=== PATIENT | male | born 1935 | race Caucasian/White ===

== ENCOUNTER 2017-01-12 14:36 | Inpatient (IN) | payer OTHER ==
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
[2017-01-12] MEDS ORDERED: NS 1000 ML 1,000 ML IV SCH (16:00)
[2017-01-12 16:03] LABS: BASOPHILS # (AUTO) 0.1 X10^3/uL (0.0-0.1); BASOPHILS % (AUTO) 0.4 % (0.2-1.0); EOSINOPHILS # (AUTO) 0.1 x10^3/uL (0.0-0.2); EOSINOPHILS % (AUTO) 0.4 % (0.9-2.9); HEMATOCRIT 35.9 % (42.0-54.0); HEMOGLOBIN 11.8 g/dL (13.5-18.0); LYMPHOCYTES # (AUTO) 1.7 X10^3/uL (1.3-2.9); LYMPHOCYTES % (AUTO) 7.1 % (21.0-51.0); MEAN CORPUSCULAR HGB CONC 32.9 g/dL (33.0-35.0); MEAN CORPUSCULAR VOLUME 85.2 fL (80.0-100.0); MEAN PLATELET VOLUME 9.5 fL (7.4-11.0); MONOCYTES # (AUTO) 2.3 x10^3/uL (0.3-0.8); MONOCYTES % (AUTO) 10.1 % (0.0-13.0); NEUTROPHILS # (AUTO) 19.1 x10^3/uL (2.2-4.8); PLATELET COUNT 247 X10^3/uL (150.0-450.0); RED BLOOD COUNT 4.21 X10^6/uL (4.7-6.0)
[2017-01-12 16:06] LABS: WHITE BLOOD COUNT 23.2 X10^3/uL (3.6-10.0)
[2017-01-12] MEDS ORDERED: NS 1000 ML 1,000 ML ONE (16:16)
[2017-01-12 16:17] LABS: BLOOD UREA NITROGEN 24 mg/dL (7-18); CALCIUM 8.7 mg/dL (8.5-10.1); CARBON DIOXIDE 21.7 mmol/L (21-32); CHLORIDE 104 mmol/L (98-107); COR NA(FOR HYPERGLY) 139 mmol/L (136-145); CREATININE 2.03 mg/dL (0.70-1.30); GLUCOSE 113 mg/dL (65-99); SODIUM 139 mmol/L (136-145); TROPONIN I < 0.02 ng/mL (0-1.5); eGFR BLACK RACES 41 (>60); eGFR NON BLACK RACES 34 (>60)
--- NOTE | 2017-01-12 16:18 | RAD ---
HISTORY: Chest pain, right-sided weakness Study: Chest one view Comparison: September 23, 2016 Findings: The patient is rotated to the right. The heart is enlarged. No congestive heart failure is noted. No acute alveolar infiltrates are identified. Interstitial lung changes are again identified in the lo wer lobes bilaterally left worse than right unchanged from the prior examination. The bony thorax is intact. IMPRESSION: Cardiomegaly without congestive heart failure No acute infiltrates Bibasilar interstitial lung changes, chronic, [id number] Reported By:
--- NOTE | 2017-01-12 16:19 | CT ---
History: Right sided weakness Study: Multi senior buyer planner CT head without contrast Comparison: September 21, 2016 Findings: There is no interval change. There is patchy diffuse encephalomalacia in the right parieta l and temporal lobes with enlargement of the body of the right lateral ventricle. The ventricles and sulci are diffusely prominent. There is no intracranial hemorrhage or mass or subdural collection o f fluid. The calvarium is intact and the paranasal sinuses are clear. Impression: 1. No acute intracranial disease demonstrated 2. Unchanged atrophy and primarily right parietal encephalomalacia from old infarction Reported By:
[2017-01-12 16:22] LABS: ALANINE AMINOTRANSFERASE 23 Units/L (12-78); ALBUMIN 3.1 g/dL (3.4-5.0); ALKALINE PHOSPHATASE 36 Units/L (46-116); ASPARTATE AMINO TRANSFERASE 14 Units/L (15-37); CKMB % 1.9 % (<4); COR CA(FOR HYPOALB) 9.4 mg/dL (8.5-10.1); CREATINE KINASE 53 Units/L (39-308); TOTAL PROTEIN 8.1 g/dL (6.4-8.2)
[2017-01-12 16:36] LABS: BAND NEUTROPHILS % 6 % (0-10)
[2017-01-12 16:37] LABS: PLATELET MORPHOLOGY COMMENT NORMAL (NORMAL)
[2017-01-12] MEDS ORDERED: NS 50 ML IV + SPIKE MINIBAG* 50 ML IV ONE (17:16)
[2017-01-12] MEDS ORDERED: FORTAZ or TAZICEF INJ ONE (17:16)
[2017-01-12] MEDS: FORTAZ or TAZICEF INJ 1 GM in NS 50 ML IV + SPIKE MINIBAG* 50 ML IV SCH ×2 (17:27→22:34)
[2017-01-12 17:47] LABS: BILIRUBIN,URINE NEGATIVE (NEGATIVE); BLOOD/HEMOGLOBIN,URINE 5+ (NEGATIVE); GLUCOSE, URINE NEGATIVE (NEGATIVE); KETONES,URINE NEGATIVE (NEGATIVE); LEUKOCYTE ESTERASE ,URINE 3+ (NEGATIVE); NITRITES,URINE POSITIVE (NEGATIVE); PROTEIN,URINE 3+ (NEGATIVE); UROBILINOGEN,URINE NORMAL (NORMAL)
[2017-01-12 17:57] LABS: APPEARANCE,URINE CLOUDY (CLEAR); BACTERIA,URINE 4+ /HPF (NEGATIVE); COLOR,URINE YELLOW (YELLOW); RBC,URINE 0-5 /HPF (NEGATIVE); SQUAMOUS EPITHELIAL CELL,UR NEGATIVE /HPF (NEGATIVE)
[2017-01-12 22:12] VITALS: BMI 28.5
[2017-01-12] MEDS: COREG TAB 25 MG PO SCH (22:36)
[2017-01-12] MEDS: [UNRECOGNIZED DRUG - OTHER] PO SCH (22:36)
[2017-01-12] MEDS: NS 1000 ML 1,000 ML IV SCH (22:36)
[2017-01-12 23:11] LABS: CKMB % 1.5 % (<4); CREATINE KINASE 65 Units/L (39-308); CREATINE KINASE MB < 1.0 ng/mL (0-4.0); TROPONIN I < 0.02 ng/mL (0-1.5)
[2017-01-13] MEDS: FORTAZ or TAZICEF INJ 1 GM in NS 50 ML IV + SPIKE MINIBAG* 50 ML IV SCH ×2 (05:54→20:28)
[2017-01-13 06:27] LABS: ALANINE AMINOTRANSFERASE 17 Units/L (12-78); ALBUMIN 2.4 g/dL (3.4-5.0); ALKALINE PHOSPHATASE 29 Units/L (46-116); ASPARTATE AMINO TRANSFERASE 16 Units/L (15-37); BLOOD UREA NITROGEN 23 mg/dL (7-18); CALCIUM 8.3 mg/dL (8.5-10.1); CARBON DIOXIDE 20.7 mmol/L (21-32); CHLORIDE 106 mmol/L (98-107); COR CA(FOR HYPOALB) 9.6 mg/dL (8.5-10.1); CREATININE 2.05 mg/dL (0.70-1.30); GLUCOSE 97 mg/dL (65-99); SODIUM 140 mmol/L (136-145); TOTAL PROTEIN 6.9 g/dL (6.4-8.2); eGFR BLACK RACES 40 (>60); eGFR NON BLACK RACES 33 (>60)
[2017-01-13 06:29] LABS: BASOPHILS # (AUTO) 0.1 X10^3/uL (0.0-0.1); MEAN PLATELET VOLUME 9.6 fL (7.4-11.0); RED BLOOD COUNT 3.81 X10^6/uL (4.7-6.0)
[2017-01-13 06:36] LABS: BASOPHILS % (AUTO) 0.3 % (0.2-1.0); HEMATOCRIT 32.7 % (42.0-54.0); HEMOGLOBIN 10.9 g/dL (13.5-18.0); LYMPHOCYTES % (AUTO) 8.4 % (21.0-51.0); MEAN CORPUSCULAR HEMOGLOBIN 28.5 pg (27.0-34.0); MEAN CORPUSCULAR HGB CONC 33.2 g/dL (33.0-35.0); MEAN CORPUSCULAR VOLUME 85.9 fL (80.0-100.0); MONOCYTES # (AUTO) 3.7 x10^3/uL (0.3-0.8); MONOCYTES % (AUTO) 10.2 % (0.0-13.0); NEUTROPHILS # (AUTO) 29.2 x10^3/uL (2.2-4.8); NEUTROPHILS % (AUTO) 81.1 % (42.0-75.0); PLATELET COUNT 199 X10^3/uL (150.0-450.0); RED CELL DISTRIBUTION WIDTH 17.1 % (11.6-16.5)
[2017-01-13 06:39] LABS: CKMB % 1.7 % (<4); CREATINE KINASE 59 Units/L (39-308); CREATINE KINASE MB < 1.0 ng/mL (0-4.0); TROPONIN I < 0.02 ng/mL (0-1.5)
[2017-01-13 06:48] LABS: BAND NEUTROPHILS % 7 % (0-10)
[2017-01-13 06:49] LABS: METAMYELOCYTES % 2; PLATELET MORPHOLOGY COMMENT NORMAL (NORMAL)
[2017-01-13] MEDS ORDERED: PHARMACY CONSULT - DOSE _____ XX SCH (10:00)
[2017-01-13] MEDS: NORVASC TAB 10 MG PO SCH (10:21)
[2017-01-13] MEDS: GLUCOTROL XL PO SCH (10:21)
[2017-01-13] MEDS: ASPIRIN PO SCH (10:21)
[2017-01-13] MEDS: EFFEXOR XR 37.5 MG CAP PO SCH (10:21)
[2017-01-13] MEDS: ARICEPT TAB 5 MG PO SCH (10:21)
[2017-01-13] MEDS: COREG TAB 25 MG PO SCH ×2 (10:21→20:28)
[2017-01-13] MEDS: PLAVIX PO SCH (10:22)
[2017-01-13] MEDS: LEVAQUIN PREMIX IV 750 MG 750 MG/150 ML BAG IV SCH (13:10)
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
--- NOTE | 2017-01-13 15:30 | VAS ---
HISTORY: Dizziness, right-sided weakness Study: Bilateral Carotid Ultrasound Comparison: 09/22/2016 Technique: Multiple marshall scale and color flow Doppler images of the right and left carotid arterial system were obtained. The vertebral arterial system was evaluated as well. Findings: Normal color flow Doppler is seen throughout the right and left carotid arterial system. There is t here is mixed calcific and fibrofatty present at the bilateral carotid bifurcations. Peak systolic v elocity in the right ICA is 81 cm/sec. Peak systolic velocity in the left ICA is 60 side cm/sec. The right ICA/CCA ratio is 1.19. The left ICA/CCA ratio is 1.46. The vertebral arteries were not visual ized on this exam, similar prior study. IMPRESSION: 1. There is calcific and fibrofatty plaque present at the bilateral carotid bifurcations. No hemodyn amically significant stenosis identified. 2. Nonvisualization of the bilateral vertebral arteries, similar to prior study. Reported By:
--- NOTE | 2017-01-13 16:39 | PCM.PROG ---
Progress Note - Progress Note for Day of Date: 01/13/17 - Subjective Subjective: PATIENT RESTS IN BED. PATIENT REPORTS HE DOESN'T FEEL WELL. DAUGHTER AT BEDSIDE. WHITE BLOOD CELL COUNT HAS RISEN FROM 23.2 TO 36.0 THIS MORNING. WE WILL ADD LEVAQUIN IV AND CONTINUE FORTAZ IV. PATIENT HAS HAD LOW- GRADE FEVER OF 99.7. HE CONTINUES WITH RIGHT-SIDED WEAKNESS. PATIENT CONTINUES ON PLAVIX AND ASPIRIN. APPETITE IS POOR. CBC WNL EXCEPT: WBC 36.0, H /H 10.9/32.7. CMP WNL EXCEPT: BUN/CREAT 23/2.05, GFR 33, CALCIUM 8.3, ALBUMIN 2.4. WE WILL OBTAIN MRI OF BRAIN TODAY. WE WILL ALSO OBTAIN AN ECHO, CAROTID DOPPLER, AND START ENSURE TID. WE WILL CONTINUE TO MONITOR AND FOLLOW UP IN AM WITH LABS. - Past Medical Family Social History Past Med/Fam/Surg Hx: No changes since H&P Allergies: Allergies No Known Drug Allergy Allergy (Verified 09/21/16 17:00) - Review of Systems ROS: No change since H&P - Vital Signs and I&O's Vital Signs: Temperature 99.6 F Pulse Rate [Right Brachial] 76 Respiratory Rate 22 Blood Pressure [Right Arm] 143/69 O2 Sat by Pulse Oximetry 96 Intake and Output: Intake & Output 01/11/17 01/12/17 01/13/17 01/14/17 11:59 11:59 11:59 11:59 Intake Total 240 Balance 240 - Physical Exam Oriented: Normal, Time, Person, Place Eyes: Normal. negative: Blurred Vision, Diplopia, Discharge, Pain, Redness, Photophobia Ear: Normal. negative: Swelling, Ecchymosis, Hemotypanum, Abrasion, Laceration Nose: Normal. negative: Injected, Discharge, Blood Throat: Dry. negative: Tonsillar Hypertrophy, Exudate Respiratory: Generalized, Diminished Cardiovascular: Normal. negative: Murmur, Edema : Discharge Auscultation: Bowel Sounds: Normal. negative: Bruit Palpation: Normal. negative: Spleen Enlarged, Liver Enlarged, Mass Pulsatile Tenderness: Normal. negative: Rebound, Guarding, Rigidity Skin: Decreased Turgur. negative: Diaphoresis, Wound, Bruising, Ecchymosis Musculoskeletal: Instability (Right-sided weakness) Psychiatric: Normal Mood Description: Calm, Appropriate Affect: Normal Speech Pattern: Clear, Appropriate - Laboratory and Diagnostics Result Diagrams: 01/13/17 06:00 01/13/17 06:00 Labs: Laboratory WBC 36.0 X10^3/uL (3.6-10.0) H* 01/13/17 06:00 RBC 3.81 X10^6/uL (4.7-6.0) L 01/13/17 06:00 Hgb 10.9 g/dL (13.5-18.0) L 01/13/17 06:00 Hct 32.7 % (42.0-54.0) L 01/13/17 06:00 MCV 85.9 fL (80.0-100.0) 01/13/17 06:00 MCH 28.5 pg (27.0-34.0) 01/13/17 06:00 MCHC 33.2 g/dL (33.0-35.0) 01/13/17 06:00 RDW 17.1 % (11.6-16.5) H 01/13/17 06:00 Plt Count 199 X10^3/uL (150.0-450.0) 01/13/17 06:00 Plt Count Comment Adequate (ADEQUATE) 01/13/17 06:00 MPV 9.6 fL (7.4-11.0) 01/13/17 06:00 Neut % 81.1 % (42.0-75.0) H 01/13/17 06:00 Lymph % 8.4 % (21.0-51.0) L 01/13/17 06:00 [place] % 10.2 % (0.0-13.0) 01/13/17 06:00 Eos % 0.0 % (0.9-2.9) L 01/13/17 06:00 Baso % 0.3 % (0.2-1.0) 01/13/17 06:00 Neut # 29.2 x10^3/uL (2.2-4.8) H 01/13/17 06:00 Lymph # 3.0 X10^3/uL (1.3-2.9) H 01/13/17 06:00 [place] # 3.7 x10^3/uL (0.3-0.8) H 01/13/17 06:00 Eos # 0.0 x10^3/uL (0.0-0.2) 01/13/17 06:00 Baso # 0.1 X10^3/uL (0.0-0.1) 01/13/17 06:00 Absolute Nucleated RBC 0.0 /100WBC 01/13/17 06:00 Total Counted 100 01/13/17 06:00 Neutrophils % (Manual) 72 % (39-76) 01/13/17 06:00 Band Neutrophils % 7 % (0-10) 01/13/17 06:00 Lymphocytes % (Manual) 12 % (13-43) L 01/13/17 06:00 Monocytes % (Manual) 7 % (4-9) 01/13/17 06:00 Eosinophils % (Manual) 1 % (0-6) 01/12/17 15:34 Metamyelocytes % 2 01/13/17 06:00 Plt Morphology Comment Normal (NORMAL) 01/13/17 06:00 RBC Morphology Normal (NORMAL) 01/13/17 06:00 Sodium 140 mmol/L (136-145) 01/13/17 06:00 Corrected Sodium TNP 01/13/17 06:00 Potassium 4.4 mmol/L (3.5-5.1) 01/13/17 06:00 Chloride 106 mmol/L (98-107) 01/13/17 06:00 Carbon Dioxide 20.7 mmol/L (21-32) L 01/13/17 06:00 BUN 23 mg/dL (7-18) H 01/13/17 06:00 Creatinine 2.05 mg/dL (0.70-1.30) H 01/13/17 06:00 Est GFR (MDRD) Af Amer 40 (>60) L 01/13/17 06:00 Est GFR (MDRD) Non-Af 33 (>60) L 01/13/17 06:00 Glucose 97 mg/dL (65-99) 01/13/17 06:00 Lactic Acid 1.4 mmol/L (0.4-2.0) 01/12/17 17:13 Calcium 8.3 mg/dL (8.5-10.1) L 01/13/17 06:00 Corrected Calcium 9.6 mg/dL (8.5-10.1) 01/13/17 06:00 Total Bilirubin 0.30 mg/dL (0.2-1.0) 01/13/17 06:00 AST 16 Units/L (15-37) 01/13/17 06:00 ALT 17 Units/L (12-78) 01/13/17 06:00 Alkaline Phosphatase 29 Units/L (46-116) L 01/13/17 06:00 Creatine Kinase 59 Units/L (39-308) 01/13/17 06:00 CK-MB (CK-2) < 1.0 ng/mL (0-4.0) 01/13/17 06:00 CK/CKMB % Calc 1.7 % (<4) 01/13/17 06:00 Troponin I < 0.02 ng/mL (0-1.5) 01/13/17 06:00 Total Protein 6.9 g/dL (6.4-8.2) 01/13/17 06:00 Albumin 2.4 g/dL (3.4-5.0) L 01/13/17 06:00 Globulin 4.5 g/dL (2.5-4.5) 01/13/17 06:00 Albumin/Globulin Ratio 0.5 Ratio (1.1-2.1) L 01/13/17 06:00 Specimen Type Clean catch urine 01/12/17 17:11 Urine Color Yellow (YELLOW) 01/12/17 17:11 Urine Appearance Cloudy (CLEAR) 01/12/17 17:11 Urine pH 7.0 (5.0 - 8.0) 01/12/17 17:11 Ur Specific [place] 1.010 (1.000-1.030) 01/12/17 17:11 Urine Protein 3+ (NEGATIVE) 01/12/17 17:11 Urine Glucose (UA) Negative (NEGATIVE) 01/12/17 17:11 Urine Ketones Negative (NEGATIVE) 01/12/17 17:11 Urine Occult Blood 5+ (NEGATIVE) 01/12/17 17:11 Urine Nitrite Positive (NEGATIVE) 01/12/17 17:11 Urine Bilirubin Negative (NEGATIVE) 01/12/17 17:11 Urine Urobilinogen Normal (NORMAL) 01/12/17 17:11 Ur Leukocyte Esterase 3+ (NEGATIVE) 01/12/17 17:11 Urine RBC 0-5 /HPF (NEGATIVE) 01/12/17 17:11 Urine WBC 11-20 /HPF (NEGATIVE) 01/12/17 17:11 Ur Squamous Epith Cells Negative /HPF (NEGATIVE) 01/12/17 17:11 Urine Bacteria 4+ /HPF (NEGATIVE) 01/12/17 17:11 Ur Culture Indicated? Yes/culture set up 01/12/17 17:11 Valproic Acid 27.8 ug/mL (50-100) L 01/12/17 15:34 - Plan (1) Leukocytosis Status: Acute Qualifiers: Leukocytosis type: L Plan: START LEVAQUIN, CONTINUE FORTAZ, MONITOR VITAL SIGNS, LABS IN AM. (2) Right sided weakness Status: Acute Plan: OBTAIN MRI OF BRAIN, ECHO, CAROTID DOPPLER, CONTINUE IV FLUIDS, MONITOR. (3) Dehydration Status: Acute Plan: ABOVE. (4) Generalized weakness Status: Acute (5) UTI (urinary tract infection) Status: Acute Qualifiers: Urinary tract infection type: site unspecified Hematuria presence: without hematuria Indwelling urinary catheter type: I Encounter type: E Qualified Code(s): N39.0 - Urinary tract infection, site not specified Plan: START LEVAQUIN, CONTINUE FORTAZ, IV FLUIDS, AWAIT CULTURES, MONITOR. (6) CAD (coronary artery disease) Status: Chronic Qualifiers: Coronary Disease-Associated Artery/Lesion type: C [place] vs. transplanted heart: N Associated angina: A (7) CHF (congestive heart failure) Status: Chronic Qualifiers: Congestive heart failure type: C Congestive heart failure chronicity: C (8) Chronic kidney disease Status: Chronic Qualifiers: Chronic kidney disease stage: C (9) Diabetes Status: Chronic Qualifiers: Diabetes mellitus type: type 2 Diabetes mellitus complication status: with unspecified complications Diabetes mellitus complication detail: D Diabetic retinopathy severity: D Proliferative retinopathy type: P Diabetes mellitus macular edema: D Diabetes mellitus correction insulin use: without intermodal dispatcher use Laterality: L Chronic kidney disease stage: C Qualified Code(s): E11.8 - Type 2 diabetes mellitus with unspecified complications (10) Renal insufficiency Status: Chronic (11) Hyperlipidemia Status: Chronic Qualifiers: Hyperlipidemia type: mixed hyperlipidemia Qualified Code(s): E78.2 - Mixed hyperlipidemia (12) Hypertension Status: Chronic Qualifiers: Hypertension type: essential hypertension Qualified Code(s): I10 - Essential (primary) hypertension (13) Muscle weakness Status: Chronic (14) Vascular dementia Status: Chronic Qualifiers: Dementia behavioral disturbance: without behavioral disturbance Qualified Code(s): F01.50 - Vascular dementia without behavioral disturbance
[2017-01-13] MEDS: DEPAKOTE ER PO SCH (18:10)
[2017-01-13] MEDS: BUTT CREAM (COMPOUND) TOP PRN (18:10)
[2017-01-13] MEDS: SNACK - Diabetic Appropriate PO SCH (20:30)
[2017-01-13] MEDS: NS 1000 ML 1,000 ML IV SCH ×2 (20:30)
[2017-01-13] MEDS: [UNRECOGNIZED DRUG - OTHER] PO SCH (23:53)
[2017-01-14 06:03] LABS: BASOPHILS % (AUTO) 0.1 % (0.2-1.0); EOSINOPHILS % (AUTO) 0.2 % (0.9-2.9); HEMATOCRIT 28.3 % (42.0-54.0); HEMOGLOBIN 9.3 g/dL (13.5-18.0); LYMPHOCYTES # (AUTO) 2.6 X10^3/uL (1.3-2.9); MEAN CORPUSCULAR HEMOGLOBIN 28.7 pg (27.0-34.0); MEAN CORPUSCULAR VOLUME 87.2 fL (80.0-100.0); MEAN PLATELET VOLUME 9.6 fL (7.4-11.0); MONOCYTES # (AUTO) 2.1 x10^3/uL (0.3-0.8); MONOCYTES % (AUTO) 8.2 % (0.0-13.0); NEUTROPHILS # (AUTO) 21.1 x10^3/uL (2.2-4.8); NEUTROPHILS % (AUTO) 81.5 % (42.0-75.0); PLATELET COUNT 171 X10^3/uL (150.0-450.0); RED BLOOD COUNT 3.25 X10^6/uL (4.7-6.0); RED CELL DISTRIBUTION WIDTH 17.4 % (11.6-16.5)
[2017-01-14 06:29] LABS: WHITE BLOOD COUNT 25.9 X10^3/uL (3.6-10.0)
--- NOTE | 2017-01-14 06:33 | RAD ---
HISTORY: Fever, right-sided weakness, elevated WBCs Study: Single-view chest, done portably Comparison: January 12, 2017 Findings: Cardiac monitoring electrodes are noted on the chest. The trachea is midline. Examination is expirat ory with accentuation of the transverse cardiac diameter and bronchovascular markings. There is mild cardiomegaly. Increased peribronchial markings are present bilaterally likely representing foci of bronchitis. No dense consolidation CHF is seen. Small left pleural effusion may be present. There ar e degenerative changes present involving the glenohumeral joint on the left. No acute osseous abnorm ality is seen. IMPRESSION: Expiratory chest with accentuation of the transverse cardiac diameter and the bronchovascular markin gs. Foci of bronchitis may be present bilaterally. A small left pleural effusion is suspected. Reported By:
[2017-01-14 06:36] LABS: ALBUMIN 2.1 g/dL (3.4-5.0); CALCIUM 8.3 mg/dL (8.5-10.1); COR CA(FOR HYPOALB) 9.8 mg/dL (8.5-10.1); CREATININE 2.23 mg/dL (0.70-1.30); TOTAL PROTEIN 6.6 g/dL (6.4-8.2)
[2017-01-14 06:47] LABS: BAND NEUTROPHILS % 10 % (0-10); PLATELET MORPHOLOGY COMMENT NORMAL (NORMAL)
--- NOTE | 2017-01-14 07:12 | MRI ---
HISTORY: Right-sided weakness, dizziness Study: Noncontrast MRI of the brain Comparison: September 22, 2016 Technique: multiple imaging planes and pulse sequences were utilized in evaluating the brain by [facility] resonance imaging. No IV contrast agents were utilized. Diffusion-weighted imaging sequences an d ADC maps were also performed. Findings: There is evidence of cerebral cortical atrophy with ex vacuo ventriculomegaly. Foci of old infarctio n involving the right frontal and parietal lobe regions Areas of surrounding gliosis are present als o. These findings are all stable. No edema, mass or hemorrhage is seen. There is no evidence of acut e or subacute infarction on diffusion-weighted imaging sequences and ADC maps. Brainstem and cerebel lum are normal. IMPRESSION: Stable right-sided frontal and parietal infarcts with surrounding areas of gliosis. An acute intracr anial abnormality is not identified. Reported By:
--- NOTE | 2017-01-14 07:24 | MRI ---
HISTORY: Right side weakness and dizziness Study: MRA brain, noncontrast Comparison: Technique: 3-D [id number] imaging of the intracranial circulation was performed. Findings: No evidence of aneurysm or AVM is seen. There is again evidence of atherosclerotic irregularity invo lving the M1 and A1 segments on the right. Right anterior cerebral artery is supplied via a patent a nterior communicating artery. There is again seen to be less robust filling of the distal branches o f the right MCA. Some collateralization is seen from the ECA on the right. The findings have not lane nged significantly compared to prior studies. A patent posterior communicating artery is seen on the left side only. There is some atherosclerotic irregularity present involving posterior cerebral bra nches bilaterally. IMPRESSION: Atherosclerotic irregularity involving the right M1 and A1 segments as well as involving the posteri or cerebral arteries bilaterally. Patent anterior communicating artery is seen. A patent left-sided posterior communicating artery is also seen. No flow signal is identified in the region of the right posterior communicating artery. Reported By:
[2017-01-14] MEDS: ARICEPT TAB 5 MG PO SCH (10:18)
[2017-01-14] MEDS: GLUCOTROL XL PO SCH (10:18)
[2017-01-14] MEDS: COREG TAB 25 MG PO SCH ×2 (10:18→20:19)
[2017-01-14] MEDS: FORTAZ or TAZICEF INJ 1 GM in NS 50 ML IV + SPIKE MINIBAG* 50 ML IV SCH ×2 (10:19→20:17)
[2017-01-14] MEDS: EFFEXOR XR 37.5 MG CAP PO SCH (10:19)
[2017-01-14] MEDS: PLAVIX PO SCH (10:19)
[2017-01-14] MEDS: ASPIRIN PO SCH (10:19)
[2017-01-14] MEDS: NORVASC TAB 10 MG PO SCH (10:19)
[2017-01-14] MEDS: DEPAKOTE ER PO SCH (17:52)
--- NOTE | 2017-01-14 19:51 | PCM.PROG ---
Progress Note - Progress Note for Day of Date: 01/14/17 - Subjective Subjective: PATIENT RESTS IN BED. PATIENT IS VERY WEAK. 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 PHYSICAL THERAPY HAS EVALUATED PATIENT AND IS RECOMMENDING PATIENT TO CARRY OUT REHABILITATION AT [facility] DUE TO PATIENT'S CURRENT STATE OF SEVERE WEAKNESS. WHITE BLOOD CELL COUNT HAS IMPROVED TODAY FROM 36.0 TO 25.9 THIS MORNING. FINAL URINE CULTURE REPORTS PROTEUS MIRABILIS, WHICH IS SENSITIVE TO LEVAQUIN AND FORTAZ. RIGHT-SIDED WEAKNESS IS IMPROVING. PATIENT CONTINUES ON PLAVIX AND ASPIRIN. CBC WNL EXCEPT : WBC 25.9, H/H 9.3/28.3. CMP WNL EXCEPT: BUN/CREAT 33/2.23, GFR 30, GLUCOSE 175, CALCIUM 8.3, ALBUMIN 2.1. WE ARE AWAITING FINAL BLOOD CULTURES. MRI OF BRAIN REPORTS STABLE RIGHT-SIDED FRONTAL AND PARIETAL INFARCTS; NO ACUTE INTRACRANIAL ABNORMALITY. MRI OF BRAIN REPORTS ATHEROSCLEROTIC IRREGULARITY INVOLVING THE RIGHT M1 AND A1 SEGMENTS WELL INVOLVING THE POSTERIOR CEREBRAL ARTERIES BILATERALLY. BILATERAL CAROTID ULTRASOUND REPORTS CALCIFIC AND FIBROFATTY PLAQUE PRESENT AT THE BILATERAL CAROTID BIFURCATIONS; NO HEMODYNAMICALLY SIGNIFICANT STENOSIS IDENTIFIED. ECHO REPORTS AN EJECTION FRACTION OF 65-70%. WE WILL CONTINUE CURRENT TREATMENT, CONTINUE TO MONITOR, AND FOLLOW UP IN AM WITH LABS. - Past Medical Family Social History Past Med/Fam/Surg Hx: No changes since H&P Allergies: Allergies No Known Drug Allergy Allergy (Verified 09/21/16 17:00) - Review of Systems ROS: No change since H&P - Vital Signs and I&O's Vital Signs: Temperature 97.9 F Pulse Rate [Right Brachial] 61 Respiratory Rate 20 Blood Pressure [Right Arm] 123/52 Blood Pressure [Left Arm] 134/63 O2 Sat by Pulse Oximetry 96 Intake and Output: Intake & Output 01/12/17 01/13/17 01/14/17 01/15/17 11:59 11:59 11:59 11:59 Intake Total 1874 800 Balance 1874 800 - Physical Exam Oriented: Normal, Time, Person, Place Eyes: Normal. negative: Blurred Vision, Diplopia, Discharge, Pain, Redness, Photophobia Ear: Normal. negative: Swelling, Ecchymosis, Hemotypanum, Abrasion, Laceration Nose: Normal. negative: Injected, Discharge, Blood Throat: Dry. negative: Tonsillar Hypertrophy, Exudate Respiratory: Generalized, Diminished Cardiovascular: Normal. negative: Murmur, Edema : Discharge Auscultation: Bowel Sounds: Normal. negative: Bruit Palpation: Normal. negative: Spleen Enlarged, Liver Enlarged, Mass Pulsatile Tenderness: Normal. negative: Rebound, Guarding, Rigidity Skin: Decreased Turgur. negative: Diaphoresis, Wound, Bruising, Ecchymosis Musculoskeletal: Instability (Right-sided weakness) Psychiatric: Normal Mood Description: Calm, Appropriate Affect: Normal Speech Pattern: Clear, Appropriate - Laboratory and Diagnostics Result Diagrams: 01/14/17 03:55 01/14/17 03:55 Labs: Laboratory WBC 25.9 X10^3/uL (3.6-10.0) H* 01/14/17 03:55 RBC 3.25 X10^6/uL (4.7-6.0) L 01/14/17 03:55 Hgb 9.3 g/dL (13.5-18.0) L 01/14/17 03:55 Hct 28.3 % (42.0-54.0) L 01/14/17 03:55 MCV 87.2 fL (80.0-100.0) 01/14/17 03:55 MCH 28.7 pg (27.0-34.0) 01/14/17 03:55 MCHC 33.0 g/dL (33.0-35.0) 01/14/17 03:55 RDW 17.4 % (11.6-16.5) H 01/14/17 03:55 Plt Count 171 X10^3/uL (150.0-450.0) 01/14/17 03:55 Plt Count Comment Adequate (ADEQUATE) 01/14/17 03:55 MPV 9.6 fL (7.4-11.0) 01/14/17 03:55 Neut % 81.5 % (42.0-75.0) H 01/14/17 03:55 Lymph % 10.0 % (21.0-51.0) L 01/14/17 03:55 [place] % 8.2 % (0.0-13.0) 01/14/17 03:55 Eos % 0.2 % (0.9-2.9) L 01/14/17 03:55 Baso % 0.1 % (0.2-1.0) L 01/14/17 03:55 Neut # 21.1 x10^3/uL (2.2-4.8) H 01/14/17 03:55 Lymph # 2.6 X10^3/uL (1.3-2.9) 01/14/17 03:55 [place] # 2.1 x10^3/uL (0.3-0.8) H 01/14/17 03:55 Eos # 0.0 x10^3/uL (0.0-0.2) 01/14/17 03:55 Baso # 0.0 X10^3/uL (0.0-0.1) 01/14/17 03:55 Absolute Nucleated RBC 0.0 /100WBC 01/14/17 03:55 Total Counted 100 01/14/17 03:55 Neutrophils % (Manual) 76 % (39-76) 01/14/17 03:55 Band Neutrophils % 10 % (0-10) 01/14/17 03:55 Lymphocytes % (Manual) 10 % (13-43) L 01/14/17 03:55 Monocytes % (Manual) 4 % (4-9) 01/14/17 03:55 Eosinophils % (Manual) 1 % (0-6) 01/12/17 15:34 Metamyelocytes % 2 01/13/17 06:00 Plt Morphology Comment Normal (NORMAL) 01/14/17 03:55 RBC Morphology Normal (NORMAL) 01/14/17 03:55 Sodium 139 mmol/L (136-145) 01/14/17 03:55 Corrected Sodium 141 mmol/L (136-145) 01/14/17 03:55 Potassium 3.8 mmol/L (3.5-5.1) 01/14/17 03:55 Chloride 105 mmol/L (98-107) 01/14/17 03:55 Carbon Dioxide 21.0 mmol/L (21-32) 01/14/17 03:55 BUN 33 mg/dL (7-18) H 01/14/17 03:55 Creatinine 2.23 mg/dL (0.70-1.30) H 01/14/17 03:55 Est GFR (MDRD) Af Amer 37 (>60) L 01/14/17 03:55 Est GFR (MDRD) Non-Af 30 (>60) L 01/14/17 03:55 Glucose 175 mg/dL (65-99) H 01/14/17 03:55 Lactic Acid 1.4 mmol/L (0.4-2.0) 01/12/17 17:13 Calcium 8.3 mg/dL (8.5-10.1) L 01/14/17 03:55 Corrected Calcium 9.8 mg/dL (8.5-10.1) 01/14/17 03:55 Total Bilirubin 0.20 mg/dL (0.2-1.0) 01/14/17 03:55 AST 14 Units/L (15-37) L 01/14/17 03:55 ALT 15 Units/L (12-78) 01/14/17 03:55 Alkaline Phosphatase 31 Units/L (46-116) L 01/14/17 03:55 Creatine Kinase 59 Units/L (39-308) 01/13/17 06:00 CK-MB (CK-2) < 1.0 ng/mL (0-4.0) 01/13/17 06:00 CK/CKMB % Calc 1.7 % (<4) 01/13/17 06:00 Troponin I < 0.02 ng/mL (0-1.5) 01/13/17 06:00 Total Protein 6.6 g/dL (6.4-8.2) 01/14/17 03:55 Albumin 2.1 g/dL (3.4-5.0) L 01/14/17 03:55 Globulin 4.5 g/dL (2.5-4.5) 01/14/17 03:55 Albumin/Globulin Ratio 0.5 Ratio (1.1-2.1) L 01/14/17 03:55 Specimen Type Clean catch urine 01/12/17 17:11 Urine Color Yellow (YELLOW) 01/12/17 17:11 Urine Appearance Cloudy (CLEAR) 01/12/17 17:11 Urine pH 7.0 (5.0 - 8.0) 01/12/17 17:11 Ur Specific [place] 1.010 (1.000-1.030) 01/12/17 17:11 Urine Protein 3+ (NEGATIVE) 01/12/17 17:11 Urine Glucose (UA) Negative (NEGATIVE) 01/12/17 17:11 Urine Ketones Negative (NEGATIVE) 01/12/17 17:11 Urine Occult Blood 5+ (NEGATIVE) 01/12/17 17:11 Urine Nitrite Positive (NEGATIVE) 01/12/17 17:11 Urine Bilirubin Negative (NEGATIVE) 01/12/17 17:11 Urine Urobilinogen Normal (NORMAL) 01/12/17 17:11 Ur Leukocyte Esterase 3+ (NEGATIVE) 01/12/17 17:11 Urine RBC 0-5 /HPF (NEGATIVE) 01/12/17 17:11 Urine WBC 11-20 /HPF (NEGATIVE) 01/12/17 17:11 Ur Squamous Epith Cells Negative /HPF (NEGATIVE) 01/12/17 17:11 Urine Bacteria 4+ /HPF (NEGATIVE) 01/12/17 17:11 Ur Culture Indicated? Yes/culture set up 01/12/17 17:11 Valproic Acid 27.8 ug/mL (50-100) L 01/12/17 15:34 - Plan (1) Leukocytosis Status: Acute Qualifiers: Leukocytosis type: L Plan: CONTINUE LEVAQUIN, FORTAZ, MONITOR VITAL SIGNS, LABS IN AM. (2) Right sided weakness Status: Acute Plan: CONTINUE TO MONITOR, CONTINUE IV FLUIDS. (3) Proteus infection Status: Acute Plan: CONTINUE LEVAQUIN, FORTAZ, MONITOR. (4) Dehydration Status: Acute Plan: ABOVE. (5) Generalized weakness Status: Acute (6) UTI (urinary tract infection) Status: Acute Qualifiers: Urinary tract infection type: site unspecified Hematuria presence: without hematuria Indwelling urinary catheter type: I Encounter type: E Qualified Code(s): N39.0 - Urinary tract infection, site not specified Plan: CONTINUE LEVAQUIN, FORTAZ, IV FLUIDS, MONITOR. (7) CAD (coronary artery disease) Status: Chronic Qualifiers: Coronary Disease-Associated Artery/Lesion type: C [place] vs. transplanted heart: N Associated angina: A (8) CHF (congestive heart failure) Status: Chronic Qualifiers: Congestive heart failure type: C Congestive heart failure chronicity: C (9) Chronic kidney disease Status: Chronic Qualifiers: Chronic kidney disease stage: C (10) Diabetes Status: Chronic Qualifiers: Diabetes mellitus type: type 2 Diabetes mellitus complication status: with unspecified complications Diabetes mellitus complication detail: D Diabetic retinopathy severity: D Proliferative retinopathy type: P Diabetes mellitus macular edema: D Diabetes mellitus correction insulin use: without correction use Laterality: L Chronic kidney disease stage: C Qualified Code(s): E11.8 - Type 2 diabetes mellitus with unspecified complications (11) Renal insufficiency Status: Chronic (12) Hyperlipidemia Status: Chronic Qualifiers: Hyperlipidemia type: mixed hyperlipidemia Qualified Code(s): E78.2 - Mixed hyperlipidemia (13) Hypertension Status: Chronic Qualifiers: Hypertension type: essential hypertension Qualified Code(s): I10 - Essential (primary) hypertension (14) Muscle weakness Status: Chronic (15) Vascular dementia Status: Chronic Qualifiers: Dementia behavioral disturbance: without behavioral disturbance Qualified Code(s): F01.50 - Vascular dementia without behavioral disturbance
[2017-01-14] MEDS: SNACK - Diabetic Appropriate PO SCH (20:19)
[2017-01-14] MEDS: ALBUMIN HUMAN 25%- 100ML 100 ML IV SCH (20:19)
[2017-01-14] MEDS: [UNRECOGNIZED DRUG - OTHER] PO SCH (20:19)
[2017-01-14] MEDS: NS 1000 ML 1,000 ML IV SCH ×2 (21:00→23:23)
[2017-01-15 06:17] LABS: BASOPHILS % (AUTO) 0.3 % (0.2-1.0); EOSINOPHILS # (AUTO) 0.1 x10^3/uL (0.0-0.2); HEMATOCRIT 29.2 % (42.0-54.0); HEMOGLOBIN 9.6 g/dL (13.5-18.0); LYMPHOCYTES # (AUTO) 1.2 X10^3/uL (1.3-2.9); LYMPHOCYTES % (AUTO) 8.9 % (21.0-51.0); MEAN CORPUSCULAR HEMOGLOBIN 28.4 pg (27.0-34.0); MEAN CORPUSCULAR VOLUME 86.1 fL (80.0-100.0); MEAN PLATELET VOLUME 9.9 fL (7.4-11.0); MONOCYTES % (AUTO) 7.2 % (0.0-13.0); NEUTROPHILS # (AUTO) 11.5 x10^3/uL (2.2-4.8); NEUTROPHILS % (AUTO) 82.6 % (42.0-75.0); PLATELET COUNT 183 X10^3/uL (150.0-450.0); RED BLOOD COUNT 3.39 X10^6/uL (4.7-6.0); RED CELL DISTRIBUTION WIDTH 16.7 % (11.6-16.5); WHITE BLOOD COUNT 13.9 X10^3/uL (3.6-10.0)
[2017-01-15 06:35] LABS: ALBUMIN 2.4 g/dL (3.4-5.0); CALCIUM 8.1 mg/dL (8.5-10.1); CARBON DIOXIDE 23.6 mmol/L (21-32); COR CA(FOR HYPOALB) 9.4 mg/dL (8.5-10.1); CREATININE 1.81 mg/dL (0.70-1.30); TOTAL PROTEIN 6.2 g/dL (6.4-8.2)
--- NOTE | 2017-01-15 08:41 | RAD ---
HISTORY: Right-sided weakness. Fever. Study: Chest one view Comparison: January 14, 2017. Findings: The trachea is midline. The cardiac silhouette is enlarged. There is persistent prominence central bronchial pulmonary markings in both lungs. Is a probable small left-sided pleural effusion. There i s no evidence of consolidation or pneumothorax. The bony thorax is unremarkable. IMPRESSION: 1. Findings of chronic chronic bronchitis and a small left pleural effusion. 2. Cardiomegaly. Reported By:
[2017-01-15] MEDS: ARICEPT TAB 5 MG PO SCH (09:45)
[2017-01-15] MEDS: ASPIRIN PO SCH (09:45)
[2017-01-15] MEDS: EFFEXOR XR 37.5 MG CAP PO SCH (09:45)
[2017-01-15] MEDS: NORVASC TAB 10 MG PO SCH (09:45)
[2017-01-15] MEDS: GLUCOTROL XL PO SCH (09:45)
[2017-01-15] MEDS: COREG TAB 25 MG PO SCH ×2 (09:45→21:37)
[2017-01-15] MEDS: FORTAZ or TAZICEF INJ 1 GM in NS 50 ML IV + SPIKE MINIBAG* 50 ML IV SCH ×2 (09:46→21:37)
[2017-01-15] MEDS: PLAVIX PO SCH (09:46)
[2017-01-15] MEDS: LEVAQUIN PREMIX IV 750 MG 750 MG/150 ML BAG IV SCH (13:23)
[2017-01-15] MEDS: NS 1000 ML 1,000 ML IV SCH (17:17)
[2017-01-15] MEDS: DEPAKOTE ER PO SCH (17:19)
[2017-01-15] MEDS: ALBUMIN HUMAN 25%- 100ML 100 ML IV SCH (21:36)
[2017-01-15] MEDS: SNACK - Diabetic Appropriate PO SCH (21:42)
[2017-01-15] MEDS: [UNRECOGNIZED DRUG - OTHER] PO SCH (21:42)
[2017-01-16] MEDS: NS 1000 ML 1,000 ML IV SCH (05:27)
[2017-01-16 06:56] LABS: ALANINE AMINOTRANSFERASE 24 Units/L (12-78); ALBUMIN 2.4 g/dL (3.4-5.0); ALKALINE PHOSPHATASE 24 Units/L (46-116); ASPARTATE AMINO TRANSFERASE 12 Units/L (15-37); BLOOD UREA NITROGEN 23 mg/dL (7-18); CALCIUM 8.5 mg/dL (8.5-10.1); CARBON DIOXIDE 23.8 mmol/L (21-32); CHLORIDE 104 mmol/L (98-107); COR CA(FOR HYPOALB) 9.8 mg/dL (8.5-10.1); CREATININE 1.64 mg/dL (0.70-1.30); GLUCOSE 83 mg/dL (65-99); SODIUM 139 mmol/L (136-145); TOTAL PROTEIN 6.7 g/dL (6.4-8.2); eGFR BLACK RACES 52 (>60); eGFR NON BLACK RACES 43 (>60)
[2017-01-16 07:00] LABS: BASOPHILS # (AUTO) 0.1 X10^3/uL (0.0-0.1); BASOPHILS % (AUTO) 0.6 % (0.2-1.0); EOSINOPHILS # (AUTO) 0.1 x10^3/uL (0.0-0.2); EOSINOPHILS % (AUTO) 1.3 % (0.9-2.9); HEMATOCRIT 27.8 % (42.0-54.0); HEMOGLOBIN 9.4 g/dL (13.5-18.0); LYMPHOCYTES # (AUTO) 1.8 X10^3/uL (1.3-2.9); LYMPHOCYTES % (AUTO) 18.1 % (21.0-51.0); MEAN CORPUSCULAR HEMOGLOBIN 28.7 pg (27.0-34.0); MEAN CORPUSCULAR HGB CONC 33.8 g/dL (33.0-35.0); MEAN CORPUSCULAR VOLUME 84.9 fL (80.0-100.0); MEAN PLATELET VOLUME 9.5 fL (7.4-11.0); MONOCYTES # (AUTO) 1.2 x10^3/uL (0.3-0.8); MONOCYTES % (AUTO) 12.6 % (0.0-13.0); NEUTROPHILS # (AUTO) 6.7 x10^3/uL (2.2-4.8); NEUTROPHILS % (AUTO) 67.4 % (42.0-75.0); PLATELET COUNT 195 X10^3/uL (150.0-450.0); RED BLOOD COUNT 3.27 X10^6/uL (4.7-6.0); RED CELL DISTRIBUTION WIDTH 16.6 % (11.6-16.5); WHITE BLOOD COUNT 9.9 X10^3/uL (3.6-10.0)
[2017-01-16] MEDS: ASPIRIN PO SCH (09:39)
[2017-01-16] MEDS: GLUCOTROL XL PO SCH (09:39)
[2017-01-16] MEDS: FORTAZ or TAZICEF INJ 1 GM in NS 50 ML IV + SPIKE MINIBAG* 50 ML IV SCH ×2 (09:39→21:31)
[2017-01-16] MEDS: ARICEPT TAB 5 MG PO SCH (09:39)
[2017-01-16] MEDS: NORVASC TAB 10 MG PO SCH (09:40)
[2017-01-16] MEDS: PLAVIX PO SCH (09:40)
[2017-01-16] MEDS: COREG TAB 25 MG PO SCH ×2 (09:40→21:30)
[2017-01-16] MEDS: EFFEXOR XR 37.5 MG CAP PO SCH (09:40)
[2017-01-16] MEDS: BUTT CREAM (COMPOUND) TOP PRN (14:30)
--- NOTE | 2017-01-16 15:18 | RAD ---
HISTORY: Right-sided weakness. Leukocytosis. Fever. Study: Single view of the chest. Comparison: 01/15/2017 Findings: Cardiomegaly with pulmonary edema and trace bilateral effusions. No consolidations. No change.. Osse ous structures demonstrate no acute abnormality. IMPRESSION: 1. No change from prior. Cardiomegaly with pulmonary edema and trace bilateral pleural effusions. Reported By:
[2017-01-16] MEDS: DEPAKOTE ER PO SCH (19:02)
[2017-01-16] MEDS: [UNRECOGNIZED DRUG - OTHER] PO SCH (21:31)
[2017-01-16] MEDS: ALBUMIN HUMAN 25%- 100ML 100 ML IV SCH (21:33)
[2017-01-16] MEDS: SNACK - Diabetic Appropriate PO SCH (21:34)
[2017-01-17] MEDS ORDERED: TYLENOL 325 MG TAB PO PRN (00:02)
[2017-01-17 05:00] LABS: BASOPHILS # (AUTO) 0.1 X10^3/uL (0.0-0.1); BASOPHILS % (AUTO) 0.6 % (0.2-1.0); EOSINOPHILS # (AUTO) 0.1 x10^3/uL (0.0-0.2); EOSINOPHILS % (AUTO) 1.4 % (0.9-2.9); HEMATOCRIT 28.5 % (42.0-54.0); HEMOGLOBIN 9.6 g/dL (13.5-18.0); LYMPHOCYTES # (AUTO) 1.7 X10^3/uL (1.3-2.9); LYMPHOCYTES % (AUTO) 17.4 % (21.0-51.0); MEAN CORPUSCULAR HEMOGLOBIN 28.7 pg (27.0-34.0); MEAN CORPUSCULAR HGB CONC 33.7 g/dL (33.0-35.0); MEAN CORPUSCULAR VOLUME 84.9 fL (80.0-100.0); MEAN PLATELET VOLUME 9.3 fL (7.4-11.0); MONOCYTES # (AUTO) 1.6 x10^3/uL (0.3-0.8); MONOCYTES % (AUTO) 16.1 % (0.0-13.0); NEUTROPHILS # (AUTO) 6.5 x10^3/uL (2.2-4.8); NEUTROPHILS % (AUTO) 64.5 % (42.0-75.0); PLATELET COUNT 191 X10^3/uL (150.0-450.0); RED BLOOD COUNT 3.36 X10^6/uL (4.7-6.0); RED CELL DISTRIBUTION WIDTH 16.8 % (11.6-16.5)
[2017-01-17 05:19] LABS: ALBUMIN 2.3 g/dL (3.4-5.0); CALCIUM 8.4 mg/dL (8.5-10.1); CARBON DIOXIDE 22.2 mmol/L (21-32); COR CA(FOR HYPOALB) 9.8 mg/dL (8.5-10.1); CREATININE 1.53 mg/dL (0.70-1.30); TOTAL PROTEIN 6.7 g/dL (6.4-8.2)
[2017-01-17] MEDS: NS 1000 ML 1,000 ML IV SCH (05:55)
--- NOTE | 2017-01-17 06:32 | RAD ---
HISTORY: Fever, leukocytosis Study: Chest one view Comparison: January 16, 2017, January 15, 2017 Findings: The heart is enlarged. Pulmonary venous congestion is present. No definite interstitial or alveolar edema or alveolar infiltrates are identified. A small left pleural effusion may be present. The bony thorax is unremarkable. IMPRESSION: Cardiomegaly with pulmonary venous congestion Reported By:
[2017-01-17] MEDS: GLUCOTROL XL PO SCH (08:49)
[2017-01-17] MEDS: ASPIRIN PO SCH (08:49)
[2017-01-17] MEDS: COREG TAB 25 MG PO SCH (08:49)
[2017-01-17] MEDS: PLAVIX PO SCH (08:49)
[2017-01-17] MEDS: EFFEXOR XR 37.5 MG CAP PO SCH (08:49)
[2017-01-17] MEDS: NORVASC TAB 10 MG PO SCH (08:49)
[2017-01-17] MEDS: FORTAZ or TAZICEF INJ 1 GM in NS 50 ML IV + SPIKE MINIBAG* 50 ML IV SCH (08:49)
[2017-01-17] MEDS: ARICEPT TAB 5 MG PO SCH (09:50)
[2017-01-17] MEDS: LEVAQUIN PREMIX IV 750 MG 750 MG/150 ML BAG IV SCH (12:15)
[2017-01-17 13:20] VITALS: BP 140/67
== END 2017-01-17 13:35 | disposition home health service (06) | DRG 948 ==
LOC: ER 14:50 → MED/SURG 18:09 → OBSVTOIN 01-13 08:00
PROVIDERS: ADMIT Internal Medicine; ATTEND Internal Medicine
DX: R53.1 Weakness (principal); N39.0 Urinary tract infection, site not specified; R50.9 Fever, unspecified; B96.4 Proteus (mirabilis) (morganii) as the cause of diseases classified elsewhere; I50.9 Heart failure, unspecified; E11.65 Type 2 diabetes mellitus with hyperglycemia; E78.2 Mixed hyperlipidemia; I12.9 Hypertensive chronic kidney disease with stage 1 through stage 4 chronic kidney disease, or unspecified chronic kidney disease; R06.02 Shortness of breath; E86.0 Dehydration; R00.0 Tachycardia, unspecified; F01.50 Vascular dementia, unspecified severity, without behavioral disturbance, psychotic disturbance, mood disturbance, and anxiety; D72.828 Other elevated white blood cell count; N18.9 Chronic kidney disease, unspecified; R94.31 Abnormal electrocardiogram [ECG] [EKG]; R26.89 Other abnormalities of gait and mobility
CPT/HCPCS: 36415; 51701; 70450; 70544; 70551; 71010; 80053; 80164; 81001; 82550; 82553; 83605; 84484; 85025; 87040; 87086; 87088; 87186; 93005; 93306; 93880; 94760; 96365; 96367; 96374; 97535; 99284; A4222; P9047; G0378; J0713; J1956

== ENCOUNTER 2017-03-05 00:27 | Emergency (ER) | payer OTHER ==
[2017-03-05 00:36] VITALS: BP 127/60; BMI 29.8
--- NOTE | 2017-03-05 00:59 | DR.GENAD ---
HPI - PCP Primary Care Physician: ANNE - Complaint/Symptoms Chief Complaint Doctors Comments: reports that patient had a seizure lasting approximately 3 minutes. He was shaking all over. No urinary or fecal incontinece. Patient is alert, answers all questions appropriately Chief Complaint:: SEIZURE ACTIVITY - Source History Provided: Patient, EMS - Mode of Arrival Mode of Arrival: Stretcher - Timing Onset of Chief Complaint: 03/05/17 PMH - PMH Past Medical History: Yes Past Medical History: Anemia, CHF, Coronary Artery Disease, CVA, Diabetes, Dyslipidemia, Hypertension, Renal Disease Past Surgical History: Yes Surgical History: Ortho Surgery Past Surgical History Comment: RIGHT BKA - Family History History of Family Medical Conditions: Yes Family Medical History: Diabetes Mellitus, Coronary Artery Disease, Hypertension - Social History Does patient currently use any type of tobacco product: No Have you used tobacco products in the last 12 months: No Type of Tobacco Use: Cigarettes Does any household member use tobacco: No Alcohol Use: None Do you use any recreational Drugs:: No Lives With: Family Lives Where: Home - infectious screening In the last 2 months have you had wt loss of >10#?: NO Have you had fever, night sweats or hemotysis?: No Have you traveled outside the country in the last 6 months?: No Isolation: Standard ROS - Review of Systems Constitutional: No Symptoms Reported Eyes: No Symptoms Reported ENTM: No Symptoms Reported Respiratoy: No Symptoms Reported Cardiovascular: No Symptoms Reported Gastrointestinal/Abdominal: No Symptoms Reported Genitourinary: No Symptoms Reported Neurological: No Symptoms Reported Musculoskeletal: No Symptoms Reported Integumentary: No Symptoms Reported Hematologic/Lymphatic: No Symptoms Reported Endocrine: No Symptoms Reported Psychiatric: No Symptoms Reported All Other Systems: Reviewed and Negative PE - Vital Signs Vitals: Temperature 98.9 F Pulse Rate 69 Respiratory Rate 16 Blood Pressure [Right Arm] 140/67 Blood Pressure [Left Arm] 134/63 Blood Pressure 127/60 O2 Sat by Pulse Oximetry 93 - General Limitations: No Limitations General Appearance: Alert, In No Apparent Distress - Head Head Exam: Normal Inspection, Atraumatic - Eyes Eye exam: Normal Appearance, PERRL, EOMI - ENT ENT Exam: Normal Exam External Ear Exam: Normal External Inspection TM/Canal Exam: Bilateral Normal Nose Exam: Normal Nose Exam Mouth Exam: Normal Inspection Throat Exam: Normal Inspection - Neck Neck Exam: Normal Inspection - Chest Chest Inspection: Normal Inspection, Symmetric Chest Wall Rise - Respiratory Respiratory Exam: Normal Lung Sounds Bilat Respiratory Exam: Bilateral Clear to Auscultation - Cardiovascular Cardiovascular Exam: Regular Rate, Normal Rhythm - Abdominal Exam Abdominal Exam: Normal Inspection Abdominal Tenderness: negative: RUQ, RLQ, LUQ, LLQ, Epigastrium, Suprapubic, Diffuse, Mild, Moderate, Severe, Other - Extremities Extremities Exam: Normal Inspection, Other (BKA right) - Back Back Exam: Normal Inspection, Full ROM - Neurologic Neurological Exam: Alert, Oriented X3, CN II-XII Intact - Psychiatric Psychiatric Exam: Normal Affect - Skin Skin Exam: Warm, Dry, Intact ROR - Labs Reviewed Result Diagrams: 03/05/17 01:10 03/05/17 01:10 Laboratory: WBC 7.7 X10^3/uL (3.6-10.0) 03/05/17 01:10 RBC 4.07 X10^6/uL (4.7-6.0) L 03/05/17 01:10 Hgb 11.4 g/dL (13.5-18.0) L 03/05/17 01:10 Hct 35.1 % (42.0-54.0) L 03/05/17 01:10 MCV 86.1 fL (80.0-100.0) 03/05/17 01:10 MCH 28.0 pg (27.0-34.0) 03/05/17 01:10 MCHC 32.5 g/dL (33.0-35.0) L 03/05/17 01:10 RDW 16.5 % (11.6-16.5) 03/05/17 01:10 Plt Count 169 X10^3/uL (150.0-450.0) 03/05/17 01:10 MPV 9.6 fL (7.4-11.0) 03/05/17 01:10 Neut % 57.9 % (42.0-75.0) 03/05/17 01:10 Lymph % 25.8 % (21.0-51.0) 03/05/17 01:10 [place] % 10.9 % (0.0-13.0) 03/05/17 01:10 Eos % 3.9 % (0.9-2.9) H 03/05/17 01:10 Baso % 1.5 % (0.2-1.0) H 03/05/17 01:10 Neut # 4.5 x10^3/uL (2.2-4.8) 03/05/17 01:10 Lymph # 2.0 X10^3/uL (1.3-2.9) 03/05/17 01:10 [place] # 0.8 x10^3/uL (0.3-0.8) 03/05/17 01:10 Eos # 0.3 x10^3/uL (0.0-0.2) H 03/05/17 01:10 Baso # 0.1 X10^3/uL (0.0-0.1) 03/05/17 01:10 Absolute Nucleated RBC 0.0 /100WBC 03/05/17 01:10 Sodium 140 mmol/L (136-145) 03/05/17 01:10 Corrected Sodium 143 mmol/L (136-145) 03/05/17 01:10 Potassium 4.2 mmol/L (3.5-5.1) 03/05/17 01:10 Chloride 106 mmol/L (98-107) 03/05/17 01:10 Carbon Dioxide 25.8 mmol/L (21-32) 03/05/17 01:10 BUN 23 mg/dL (7-18) H 03/05/17 01:10 Creatinine 2.14 mg/dL (0.70-1.30) H 03/05/17 01:10 Est GFR (MDRD) Af Amer 38 (>60) L 03/05/17 01:10 Est GFR (MDRD) Non-Af 32 (>60) L 03/05/17 01:10 Glucose 224 mg/dL (65-99) H 03/05/17 01:10 Calcium 8.5 mg/dL (8.5-10.1) 03/05/17 01:10 Corrected Calcium 9.4 mg/dL (8.5-10.1) 03/05/17 01:10 Total Bilirubin 0.20 mg/dL (0.2-1.0) 03/05/17 01:10 AST 14 Units/L (15-37) L 03/05/17 01:10 ALT 16 Units/L (12-78) 03/05/17 01:10 Alkaline Phosphatase 34 Units/L (46-116) L 03/05/17 01:10 Total Protein 7.2 g/dL (6.4-8.2) 03/05/17 01:10 Albumin 2.9 g/dL (3.4-5.0) L 03/05/17 01:10 Globulin 4.3 g/dL (2.5-4.5) 03/05/17 01:10 Albumin/Globulin Ratio 0.7 Ratio (1.1-2.1) L 03/05/17 01:10 Valproic Acid 20.3 ug/mL (50-100) L 03/05/17 01:10 - XRAY XRAY Interpreted by: Radiologist (CT Brain: There is bilateral cortical atrophy. Periventricular and subcortical white matter changes are present bilaterally consistent with moderate small vessel vasculopathy. Multifocal areas of encephalomalacia secondary to old infarcts are seen in the right cerebral hemisphere.) - Diagnosis Discharge Problem: Seizure, Seizure secondary to subtherapeutic anticonvulsant medication - Discharge Plan Condition: Stable - Follow ups/Referrals Follow ups/Referrals: OLI RODRÍGUEZ [Primary Care Provider] - 3 days - Instructions
[2017-03-05 01:20] LABS: BASOPHILS # (AUTO) 0.1 X10^3/uL (0.0-0.1); BASOPHILS % (AUTO) 1.5 % (0.2-1.0); EOSINOPHILS # (AUTO) 0.3 x10^3/uL (0.0-0.2); EOSINOPHILS % (AUTO) 3.9 % (0.9-2.9); HEMATOCRIT 35.1 % (42.0-54.0); HEMOGLOBIN 11.4 g/dL (13.5-18.0); LYMPHOCYTES % (AUTO) 25.8 % (21.0-51.0); MEAN CORPUSCULAR HGB CONC 32.5 g/dL (33.0-35.0); MEAN CORPUSCULAR VOLUME 86.1 fL (80.0-100.0); MEAN PLATELET VOLUME 9.6 fL (7.4-11.0); MONOCYTES # (AUTO) 0.8 x10^3/uL (0.3-0.8); MONOCYTES % (AUTO) 10.9 % (0.0-13.0); NEUTROPHILS # (AUTO) 4.5 x10^3/uL (2.2-4.8); NEUTROPHILS % (AUTO) 57.9 % (42.0-75.0); PLATELET COUNT 169 X10^3/uL (150.0-450.0); RED BLOOD COUNT 4.07 X10^6/uL (4.7-6.0); RED CELL DISTRIBUTION WIDTH 16.5 % (11.6-16.5); WHITE BLOOD COUNT 7.7 X10^3/uL (3.6-10.0)
[2017-03-05 01:27] LABS: ALBUMIN 2.9 g/dL (3.4-5.0); CALCIUM 8.5 mg/dL (8.5-10.1); CARBON DIOXIDE 25.8 mmol/L (21-32); COR CA(FOR HYPOALB) 9.4 mg/dL (8.5-10.1); CREATININE 2.14 mg/dL (0.70-1.30); TOTAL PROTEIN 7.2 g/dL (6.4-8.2)
[2017-03-05 01:34] LABS: VALPROIC ACID 20.3 ug/mL (50-100)
--- NOTE | 2017-03-05 02:32 | CT ---
EXAM: CT BRAIN WITHOUT CONTRAST INDICATION: Seizure COMPARISION: No Priors TECHNIQUE: Routine axial CT of the brain was performed without intravenous contrast. FINDINGS: There is advanced bilateral cortical atrophy. Old infarcts with secondary encephalomalacia are seen in the right cerebral hemisphere. Patchy areas of low-attenuation are identified in the periventricu lar white matter bilaterally. The ventricular system is not abnormally dilated. No intra or extra-ax ial mass or hemorrhage. The marshall-white junction is preserved. There is no evidence of subacute ische naseem change. The basilar cisterns are clear. The skull is intact. The paranasal sinuses and mastoid air cells are clear. IMPRESSION: There is bilateral cortical atrophy. Periventricular and subcortical white matter changes are presen t bilaterally consistent with moderate small vessel vasculopathy. Multifocal areas of encephalomalacia secondary to old infarcts are seen in the right cerebral hemisp here. Reported By:
== END 2017-03-05 03:40 | disposition home or self-care (01) ==
LOC: ER 00:27
DX: R56.9 Unspecified convulsions (principal); G93.89 Other specified disorders of brain; Z79.899 Other long term (current) drug therapy
CPT/HCPCS: 36415; 70450; 80053; 80164; 85025; 99282; 99283; 99284

== ENCOUNTER 2017-05-17 19:00 | Observation (INO) | payer OTHER ==
--- NOTE | 2017-05-17 19:26 | DR.GENAD ---
HPI - Complaint/Symptoms Chief Complaint Doctors Comments: Daughter reports periods of not rersponding to her. Chief Complaint:: PT HAVING AMS LAST SEEN NORMAL 4 HOURS AGO - Nurses notes reviewed Nurses Notes Review: Yes - Source History Provided: Patient, EMS - Mode of Arrival Mode of Arrival: EMS - Timing Onset of Chief Complaint: 05/17/17 Came on: Gradually - Duration Duration: Intermittent How lon Duration: Hours - Location Location: mental - Severity Severity: Mild - Modifying Factors Worsens:: unknown - Associated Signs and Symptoms Associated Signs and Symptoms: none - Other History Other History: Hx dementia PMH - PMH Past Medical History: Yes Past Medical History: Anemia, CHF, Coronary Artery Disease, CVA, Diabetes, Dyslipidemia, Hypertension, Renal Disease Past Surgical History: Yes Surgical History: Ortho Surgery - Family History History of Family Medical Conditions: Yes Family Medical History: Diabetes Mellitus, Coronary Artery Disease, Hypertension - Social History Does patient currently use any type of tobacco product: No Have you used tobacco products in the last 12 months: No Type of Tobacco Use: None Does any household member use tobacco: No Do you use any recreational Drugs:: No Lives With: Family Lives Where: Home - infectious screening In the last 2 months have you had wt loss of >10#?: NO Have you had fever, night sweats or hemotysis?: No Have you traveled outside the country in the last 6 months?: No Isolation: Standard ROS - Review of Systems Constitutional: No Symptoms Reported Eyes: No Symptoms Reported ENTM: No Symptoms Reported Respiratoy: No Symptoms Reported Cardiovascular: No Symptoms Reported Gastrointestinal/Abdominal: No Symptoms Reported Genitourinary: No Symptoms Reported Neurological: No Symptoms Reported Musculoskeletal: No Symptoms Reported, Other (right BKA) Integumentary: No Symptoms Reported Hematologic/Lymphatic: No Symptoms Reported Endocrine: No Symptoms Reported Psychiatric: No Symptoms Reported PE - Vital Signs Vitals: Temperature 98.4 F Pulse Rate [Apical] 55 Pulse Rate 58 Respiratory Rate 18 Blood Pressure [Right Arm] 114/62 Blood Pressure [Left Arm] 134/63 Blood Pressure 183/83 O2 Sat by Pulse Oximetry 99 - General Limitations: No Limitations General Appearance: Alert, In No Apparent Distress - Head Head Exam: Normal Inspection - Eyes Eye exam: Normal Appearance, EOMI. negative: Scleral Icterus, Conjunctival Injection - ENT ENT Exam: Normal Exam, Normal Oropharynx - Neck Neck Exam: Normal Inspection, Full ROM, Trachea Midline - Chest Chest Inspection: Normal Inspection - Respiratory Respiratory Exam: Normal Lung Sounds Bilat. negative: Accessory Muscle Use, Respiratory Distress Respiratory Exam: Bilateral Clear to Auscultation - Cardiovascular Cardiovascular Exam: Regular Rate - Abdominal Exam Abdominal Exam: Normal Inspection, Normal Bowel Sounds, Soft. negative: Distention, Guarding - Extremities Extremities Exam: Normal Inspection (right BKA), Full ROM - Back Back Exam: Normal Inspection - Neurologic Neurological Exam: Alert, Oriented X3, CN II-XII Intact - Psychiatric Psychiatric Exam: Normal Mood, Other (hx dementia) - Skin Skin Exam: Intact, Normal Color Course - Consultation Called: 21:44 Call Returned: :44 Consultation Comments: case discussed with DR. Keenan KOVACS and repeat labs. ROR - Labs Reviewed Result Diagrams: 05/17/17 19:35 05/17/17 19:35 Laboratory: WBC 10.7 X10^3/uL (3.6-10.0) H 05/17/17 19:35 RBC 4.03 X10^6/uL (4.7-6.0) L 05/17/17 19:35 Hgb 12.2 g/dL (13.5-18.0) L 05/17/17 19:35 Hct 35.7 % (42.0-54.0) L 05/17/17 19:35 MCV 88.7 fL (80.0-100.0) 05/17/17 19:35 MCH 30.2 pg (27.0-34.0) 05/17/17 19:35 MCHC 34.1 g/dL (33.0-35.0) 05/17/17 19:35 RDW 16.8 % (11.6-16.5) H 05/17/17 19:35 Plt Count 206 X10^3/uL (150.0-450.0) 05/17/17 19:35 Plt Count Comment Adequate (ADEQUATE) 05/17/17 19:35 MPV 9.2 fL (7.4-11.0) 05/17/17 19:35 Neut % 50.4 % (42.0-75.0) 05/17/17 19:35 Lymph % 32.3 % (21.0-51.0) 05/17/17 19:35 [place] % 13.7 % (0.0-13.0) H 05/17/17 19:35 Eos % 2.3 % (0.9-2.9) 05/17/17 19:35 Baso % 1.3 % (0.2-1.0) H 05/17/17 19:35 Neut # 5.4 x10^3/uL (2.2-4.8) H 05/17/17 19:35 Lymph # 3.5 X10^3/uL (1.3-2.9) H 05/17/17 19:35 [place] # 1.5 x10^3/uL (0.3-0.8) H 05/17/17 19:35 Eos # 0.2 x10^3/uL (0.0-0.2) 05/17/17 19:35 Baso # 0.1 X10^3/uL (0.0-0.1) 05/17/17 19:35 Absolute Nucleated RBC 0.1 /100WBC 05/17/17 19:35 Total Counted 100 05/17/17 19:35 Neutrophils % (Manual) 54 % (39-76) 05/17/17 19:35 Band Neutrophils % 3 % (0-10) 05/17/17 19:35 Lymphocytes % (Manual) 28 % (13-43) 05/17/17 19:35 Monocytes % (Manual) 12 % (4-9) H 05/17/17 19:35 Eosinophils % (Manual) 3 % (0-6) 05/17/17 19:35 Plt Morphology Comment Normal (NORMAL) 05/17/17 19:35 RBC Morphology Abnormal (NORMAL) 05/17/17 19:35 Anisocytosis Slight A 05/17/17 19:35 Sodium 137 mmol/L (136-145) 05/17/17 19:35 Corrected Sodium 138 mmol/L (136-145) 05/17/17 19:35 Potassium 4.3 mmol/L (3.5-5.1) 05/17/17 19:35 Chloride 100 mmol/L (98-107) 05/17/17 19:35 Carbon Dioxide 28.2 mmol/L (21-32) 05/17/17 19:35 BUN 31 mg/dL (7-18) H 05/17/17 19:35 Creatinine 2.61 mg/dL (0.70-1.30) H 05/17/17 19:35 Est GFR (MDRD) Af Amer 31 (>60) L 05/17/17 19:35 Est GFR (MDRD) Non-Af 25 (>60) L 05/17/17 19:35 Glucose 140 mg/dL (65-99) H 05/17/17 19:35 Calcium 8.6 mg/dL (8.5-10.1) 05/17/17 19:35 Corrected Calcium 9.2 mg/dL (8.5-10.1) 05/17/17 19:35 Total Bilirubin 0.20 mg/dL (0.2-1.0) 05/17/17 19:35 AST 15 Units/L (15-37) 05/17/17 19:35 ALT 16 Units/L (12-78) 05/17/17 19:35 Alkaline Phosphatase 27 Units/L (46-116) L 05/17/17 19:35 Total Protein 8.0 g/dL (6.4-8.2) 05/17/17 19:35 Albumin 3.2 g/dL (3.4-5.0) L 05/17/17 19:35 Globulin 4.8 g/dL (2.5-4.5) H 05/17/17 19:35 Albumin/Globulin Ratio 0.7 Ratio (1.1-2.1) L 05/17/17 19:35 Specimen Type Clean catch urine 05/17/17 20:49 Urine Color Yellow (YELLOW) 05/17/17 20:49 Urine Appearance Clear (CLEAR) 05/17/17 20:49 Urine pH 6.5 (5.0 - 8.0) 05/17/17 20:49 Ur Specific [place] 1.010 (1.000-1.030) 05/17/17 20:49 Urine Protein 2+ (NEGATIVE) 05/17/17 20:49 Urine Glucose (UA) Negative (NEGATIVE) 05/17/17 20:49 Urine Ketones Negative (NEGATIVE) 05/17/17 20:49 Urine Occult Blood 1+ (NEGATIVE) 05/17/17 20:49 Urine Nitrite Negative (NEGATIVE) 05/17/17 20:49 Urine Bilirubin Negative (NEGATIVE) 05/17/17 20:49 Urine Urobilinogen Normal (NORMAL) 05/17/17 20:49 Ur Leukocyte Esterase Negative (NEGATIVE) 05/17/17 20:49 Urine RBC 0-2 /HPF (NEGATIVE) 05/17/17 20:49 Urine WBC 0-1 /HPF (NEGATIVE) 05/17/17 20:49 Ur Squamous Epith Cells Rare /HPF (NEGATIVE) 05/17/17 20:49 Amorphous Sediment 1+ /HPF (NEGATIVE) 05/17/17 20:49 Urine Bacteria Negative /HPF (NEGATIVE) 05/17/17 20:49 Ur Culture Indicated? No/not indicated 05/17/17 20:49 Urine Opiates Screen Negative (NEG=<300) 05/17/17 20:49 Urine Methadone Screen Negative (NEG=<300) 05/17/17 20:49 Ur Barbiturates Screen Negative (NEG=<200) 05/17/17 20:49 Ur Phencyclidine Scrn Negative (NEG=<25) 05/17/17 20:49 Ur Amphetamines Screen Negative (NEG=<1000) 05/17/17 20:49 U Benzodiazepines Scrn Negative (NEG=<200) 05/17/17 20:49 Urine Cocaine Screen Negative (NEG=<300) 05/17/17 20:49 U Marijuana (THC) Screen Negative (NEG=<50) 05/17/17 20:49 - XRAY XRAY Interpreted by: Radiologist XRAY Findings: chest: no acute disease Ct head: no acute cva, old stroke - Diagnosis Discharge Problem: Dehydration - Discharge Plan Condition: Stable - Follow ups/Referrals Follow ups/Referrals: NFD,None [Primary Care Provider] - 3 days - Instructions
[2017-05-17 19:45] LABS: BASOPHILS # (AUTO) 0.1 X10^3/uL (0.0-0.1); BASOPHILS % (AUTO) 1.3 % (0.2-1.0); EOSINOPHILS # (AUTO) 0.2 x10^3/uL (0.0-0.2); EOSINOPHILS % (AUTO) 2.3 % (0.9-2.9); HEMATOCRIT 35.7 % (42.0-54.0); HEMOGLOBIN 12.2 g/dL (13.5-18.0); LYMPHOCYTES # (AUTO) 3.5 X10^3/uL (1.3-2.9); LYMPHOCYTES % (AUTO) 32.3 % (21.0-51.0); MEAN CORPUSCULAR HEMOGLOBIN 30.2 pg (27.0-34.0); MEAN CORPUSCULAR HGB CONC 34.1 g/dL (33.0-35.0); MEAN CORPUSCULAR VOLUME 88.7 fL (80.0-100.0); MEAN PLATELET VOLUME 9.2 fL (7.4-11.0); MONOCYTES # (AUTO) 1.5 x10^3/uL (0.3-0.8); MONOCYTES % (AUTO) 13.7 % (0.0-13.0); NEUTROPHILS # (AUTO) 5.4 x10^3/uL (2.2-4.8); NEUTROPHILS % (AUTO) 50.4 % (42.0-75.0); PLATELET COUNT 206 X10^3/uL (150.0-450.0); RED BLOOD COUNT 4.03 X10^6/uL (4.7-6.0); RED CELL DISTRIBUTION WIDTH 16.8 % (11.6-16.5); WHITE BLOOD COUNT 10.7 X10^3/uL (3.6-10.0)
[2017-05-17 19:56] LABS: ALBUMIN 3.2 g/dL (3.4-5.0); CALCIUM 8.6 mg/dL (8.5-10.1); CARBON DIOXIDE 28.2 mmol/L (21-32); COR CA(FOR HYPOALB) 9.2 mg/dL (8.5-10.1); CREATININE 2.61 mg/dL (0.70-1.30)
--- NOTE | 2017-05-17 20:04 | CT ---
HISTORY: Altered mental status and confusion. Noncontrast head CT examination. Comparison: None. Technique: Multiple axial images of the brain were obtained from the skull base to the vertex without administr ation of IV contrast. Findings: There is evidence for an old, chronic, CVA in the mid and high convexity of the frontotemp oral cortex in the MCA distribution with associated cerebral \T\ adjacent white matter encephalomala evon, volume loss, gliosis, and ex vacuo dilatation of the adjacent ventricular system near this prio r ischemic event. However, if the patients symptoms are clinically \T\ neurologically concerning for an acute ischemic event, then MR imaging of the brain with DWI sequencing would likely be beneficia l to exclude an acute CVA. There is moderate sulcal and cisternal prominence as well as atheroscle rotic change in the proximal intracranial carotid and vertebral arteries, which is not out of propor tion to the patient's stated age. There is diffuse CT density alteration seen in the periventricular white matter of the high and mid-convexity, which is likely in the setting of small vessel disease and not out of proportion to the patient's stated age. There is mild bilateral ex vacuo ventricular dilatation without evidence for hydrocephalus or herniation syndrome. No midline shift is evident. N o acute intraparenchymal hemorrhage or mass can be identified. No extra-axial fluid collections are seen. No alteration in the attenuation of the brain parenchyma can be identified to suggest acute or subacute ischemic change. IMPRESSION: 1. No acute intracranial process can be identified. 2. Old, chronic, CVA in the mid and high convexity of the frontotemporal cortex in the right MCA dis tribution with associated cerebral \T\ adjacent white matter encephalomalacia, volume loss, gliosis, and ex vacuo dilatation of the adjacent ventricular system near this prior ischemic event. However, if the patients symptoms are clinically \T\ neurologically concerning for an acute on chronic ische naseem event, then MR imaging of the brain with DWI sequencing would likely be beneficial to exclude an acute CVA. Reported By:
[2017-05-17 20:07] LABS: BAND NEUTROPHILS % 3 % (0-10)
[2017-05-17 20:08] LABS: ANISOCYTOSIS SLIGHT; PLATELET MORPHOLOGY COMMENT NORMAL (NORMAL)
--- NOTE | 2017-05-17 20:20 | RAD ---
HISTORY: Altered mental status Study: Single view chest Comparison: Multiple priors dating back to 09/21/2016 Findings: Single portable view is submitted. Lung volumes are reduced. There is nonspecific interstitial promi nence in the lungs that may reflect emphysematous or interstitial lung disease. The cardiac and medi astinal contours are within normal limits. The soft tissues are unremarkable. IMPRESSION: 1. Low lung volumes with chronic interstitial prominence suggesting underlying emphysematous or inte rstitial lung disease. Reported By:
[2017-05-17 21:17] LABS: BILIRUBIN,URINE NEGATIVE (NEGATIVE); BLOOD/HEMOGLOBIN,URINE 1+ (NEGATIVE); GLUCOSE, URINE NEGATIVE (NEGATIVE); KETONES,URINE NEGATIVE (NEGATIVE); LEUKOCYTE ESTERASE ,URINE NEGATIVE (NEGATIVE); NITRITES,URINE NEGATIVE (NEGATIVE); PH,URINE 6.5 (5.0 - 8.0); PROTEIN,URINE 2+ (NEGATIVE); UROBILINOGEN,URINE NORMAL (NORMAL)
[2017-05-17 21:32] LABS: AMORPHOUS SEDIMENT,UR 1+ /HPF (NEGATIVE); APPEARANCE,URINE CLEAR (CLEAR); BACTERIA,URINE NEGATIVE /HPF (NEGATIVE); COLOR,URINE YELLOW (YELLOW); RBC,URINE 0-2 /HPF (NEGATIVE); SQUAMOUS EPITHELIAL CELL,UR RARE /HPF (NEGATIVE)
[2017-05-17] MEDS: NS 1000 ML 1,000 ML IV SCH (22:38)
[2017-05-17 23:06] VITALS: BMI 32.0
[2017-05-18] MEDS: NS 1000 ML 1,000 ML IV SCH ×3 (05:04→21:09)
[2017-05-18 05:51] LABS: ALANINE AMINOTRANSFERASE 14 Units/L (12-78); ALBUMIN 2.7 g/dL (3.4-5.0); ALKALINE PHOSPHATASE 21 Units/L (46-116); ASPARTATE AMINO TRANSFERASE 15 Units/L (15-37); BLOOD UREA NITROGEN 29 mg/dL (7-18); CALCIUM 8.1 mg/dL (8.5-10.1); CARBON DIOXIDE 26.6 mmol/L (21-32); CHLORIDE 106 mmol/L (98-107); COR CA(FOR HYPOALB) 9.1 mg/dL (8.5-10.1); CREATININE 2.43 mg/dL (0.70-1.30); GLUCOSE 55 mg/dL (65-99); SODIUM 142 mmol/L (136-145); TOTAL PROTEIN 6.8 g/dL (6.4-8.2); eGFR BLACK RACES 33 (>60); eGFR NON BLACK RACES 27 (>60)
[2017-05-18 06:14] LABS: BASOPHILS # (AUTO) 0.1 X10^3/uL (0.0-0.1); BASOPHILS % (AUTO) 0.7 % (0.2-1.0); EOSINOPHILS # (AUTO) 0.2 x10^3/uL (0.0-0.2); EOSINOPHILS % (AUTO) 2.8 % (0.9-2.9); HEMATOCRIT 33.9 % (42.0-54.0); HEMOGLOBIN 11.4 g/dL (13.5-18.0); LYMPHOCYTES # (AUTO) 2.8 X10^3/uL (1.3-2.9); LYMPHOCYTES % (AUTO) 32.3 % (21.0-51.0); MEAN CORPUSCULAR HEMOGLOBIN 29.9 pg (27.0-34.0); MEAN CORPUSCULAR HGB CONC 33.5 g/dL (33.0-35.0); MEAN CORPUSCULAR VOLUME 89.1 fL (80.0-100.0); MEAN PLATELET VOLUME 9.5 fL (7.4-11.0); MONOCYTES # (AUTO) 1.2 x10^3/uL (0.3-0.8); MONOCYTES % (AUTO) 13.5 % (0.0-13.0); NEUTROPHILS # (AUTO) 4.4 x10^3/uL (2.2-4.8); NEUTROPHILS % (AUTO) 50.7 % (42.0-75.0); PLATELET COUNT 189 X10^3/uL (150.0-450.0); RED CELL DISTRIBUTION WIDTH 16.5 % (11.6-16.5); WHITE BLOOD COUNT 8.6 X10^3/uL (3.6-10.0)
[2017-05-18] MEDS ORDERED: LR 1000 ML IV 1,000 ML IV ONE (10:09)
[2017-05-18] MEDS: EFFEXOR XR 37.5 MG CAP PO SCH (10:58)
[2017-05-18] MEDS: NORVASC TAB 10 MG PO SCH (10:58)
[2017-05-18] MEDS: ASPIRIN PO SCH (10:59)
[2017-05-18] MEDS: COREG TAB 25 MG PO SCH ×2 (10:59→21:10)
[2017-05-18] MEDS: ARICEPT TAB 5 MG PO SCH (10:59)
[2017-05-18] MEDS: PLAVIX PO SCH (10:59)
[2017-05-18 16:58] LABS: BLOOD UREA NITROGEN 30 mg/dL (7-18); CALCIUM 8.3 mg/dL (8.5-10.1); CARBON DIOXIDE 28.8 mmol/L (21-32); CHLORIDE 106 mmol/L (98-107); CREATININE 2.41 mg/dL (0.70-1.30); GLUCOSE 97 mg/dL (65-99); SODIUM 141 mmol/L (136-145); eGFR BLACK RACES 34 (>60); eGFR NON BLACK RACES 28 (>60)
[2017-05-18] MEDS ORDERED: DEPAKOTE ER PO SCH (18:00)
[2017-05-18] MEDS ORDERED: SNACK - Diabetic Appropriate PO SCH (20:00)
[2017-05-18] MEDS ORDERED: PATIENT'S HOME MEDICATION (Rosuvastatin Calcium [Crestor] 40 MG) PO SCH (21:00)
[2017-05-18] MEDS ORDERED: CRESTOR TAB 10 MG PO SCH (21:00)
[2017-05-19] MEDS: NS 1000 ML 1,000 ML IV SCH ×2 (02:00→08:26)
[2017-05-19 06:25] LABS: BASOPHILS % (AUTO) 0.5 % (0.2-1.0); EOSINOPHILS # (AUTO) 0.2 x10^3/uL (0.0-0.2); HEMATOCRIT 35.1 % (42.0-54.0); LYMPHOCYTES # (AUTO) 2.2 X10^3/uL (1.3-2.9); LYMPHOCYTES % (AUTO) 26.3 % (21.0-51.0); MEAN CORPUSCULAR HEMOGLOBIN 30.6 pg (27.0-34.0); MEAN CORPUSCULAR HGB CONC 34.1 g/dL (33.0-35.0); MEAN CORPUSCULAR VOLUME 89.7 fL (80.0-100.0); MEAN PLATELET VOLUME 9.6 fL (7.4-11.0); MONOCYTES # (AUTO) 1.2 x10^3/uL (0.3-0.8); MONOCYTES % (AUTO) 14.5 % (0.0-13.0); NEUTROPHILS # (AUTO) 4.8 x10^3/uL (2.2-4.8); NEUTROPHILS % (AUTO) 56.7 % (42.0-75.0); PLATELET COUNT 182 X10^3/uL (150.0-450.0); RED BLOOD COUNT 3.91 X10^6/uL (4.7-6.0); RED CELL DISTRIBUTION WIDTH 16.2 % (11.6-16.5); WHITE BLOOD COUNT 8.5 X10^3/uL (3.6-10.0)
[2017-05-19 06:38] LABS: ALBUMIN 2.7 g/dL (3.4-5.0); CALCIUM 8.3 mg/dL (8.5-10.1); CARBON DIOXIDE 25.4 mmol/L (21-32); COR CA(FOR HYPOALB) 9.3 mg/dL (8.5-10.1); CREATININE 2.16 mg/dL (0.70-1.30)
[2017-05-19] MEDS: COREG TAB 25 MG PO SCH (08:25)
[2017-05-19] MEDS: NORVASC TAB 10 MG PO SCH (08:25)
[2017-05-19] MEDS: ASPIRIN PO SCH (08:25)
[2017-05-19] MEDS: EFFEXOR XR 37.5 MG CAP PO SCH (08:25)
[2017-05-19] MEDS: ARICEPT TAB 5 MG PO SCH (08:25)
[2017-05-19] MEDS: PLAVIX PO SCH (08:26)
[2017-05-19 08:50] VITALS: BP 162/58
== END 2017-05-19 10:10 | disposition home or self-care (01) ==
LOC: ER 19:06 → ICU 21:50 → OBSVTOIN 21:50 → INTOOBSV 21:50
PROVIDERS: ADMIT Obstetrics & Gynecology Obstetrics; ATTEND Obstetrics & Gynecology Obstetrics
DX: G45.8 Other transient cerebral ischemic attacks and related syndromes (principal); E86.0 Dehydration; R74.8 Abnormal levels of other serum enzymes; R41.82 Altered mental status, unspecified; R94.4 Abnormal results of kidney function studies; R94.31 Abnormal electrocardiogram [ECG] [EKG]; E78.2 Mixed hyperlipidemia; E11.649 Type 2 diabetes mellitus with hypoglycemia without coma; I25.10 Atherosclerotic heart disease of native coronary artery without angina pectoris; I10 Essential (primary) hypertension; F03.90 Unspecified dementia, unspecified severity, without behavioral disturbance, psychotic disturbance, mood disturbance, and anxiety; D64.89 Other specified anemias; R26.89 Other abnormalities of gait and mobility
CPT/HCPCS: 36415; 70450; 71010; 80048; 80053; 80307; 81001; 85025; 93005; 93010; 96365; 96367; 99284; A4216; G0378; G0434; J7120